=== PATIENT | male | born 1945 | race African-American/Black ===

== ENCOUNTER 2022-04-19 04:15 | Day surgery (SDC) | payer OTHER, MEDICARE ==
[2022-04-17 12:17] VITALS: BMI 20.9
[2022-04-19] MEDS ORDERED: LIDOCAINE HCL 1%, 10 MG/ML (20ML VIAL) INF ONE ×3 (13:20→14:24)
[2022-04-19] MEDS ORDERED: IOHEXOL 300 MG/ML INFUS..BTL IV ONE ×3 (13:21→14:24)
[2022-04-19] MEDS ORDERED: HEPARIN NA (PORCINE) 5,000 UNITS/ML 1ML VIAL SQ ONE ×2 (13:21→14:24)
[2022-04-19] MEDS ORDERED: PROPOFOL 20 ML ONE (14:01)
[2022-04-19] MEDS ORDERED: ceFAZolin SODIUM 1 GM VIAL ONE (14:35)
[2022-04-19] MEDS ORDERED: HEPARIN NA (PORCINE) 5,000 UNITS/ML 1ML VIAL ONE (15:01)
[2022-04-19] MEDS ORDERED: CLOPIDOGREL BISULFATE 75 MG TABLET (FP) PO ONE (15:51)
[2022-04-19] MEDS ORDERED: ONDANSETRON 4 MG/2 ML VIAL IVPUSH PRN (15:58)
[2022-04-19] MEDS ORDERED: LACTATED RINGERS SOLUTION 1,000 ML IV SCH (16:00)
[2022-04-19] MEDS ORDERED: hydrALAZINE HCL 20 MG/ML VIAL ONE (16:12)
[2022-04-19] MEDS ORDERED: hydrALAZINE HCL 20 MG/ML VIAL IVPUSH ONE (16:24)
[2022-04-19] MEDS ORDERED: CLOPIDOGREL BISULFATE 75 MG TABLET (FP) ONE (16:39)
[2022-04-19 18:39] VITALS: BP 140/88; PULSE 66; RESP 16; TEMP 98.2
== END 2022-04-19 18:30 | disposition home or self-care (01) ==
LOC: JASU-SURG 04:15
PROVIDERS: ATTEND Surgery Vascular Surgery
PROC: 047Q3ZZ Dilation of Left Anterior Tibial Artery, Percutaneous Approach (ICD-10-PCS; 2022-04-19)
PROC: 047L3D1 Dilation of Left Femoral Artery with Intraluminal Device, using Drug-Coated Balloon, Percutaneous Approach (ICD-10-PCS; principal; 2022-04-19 14:00)
DX: I70.262 Atherosclerosis of native arteries of extremities with gangrene, left leg (principal)
CPT/HCPCS: 37227; 37228; C1877; C1885; C2623; 76000-TC-FY; 94760; C1760; J1644